=== PATIENT | female | born 1980 | race Caucasian/White ===

== ENCOUNTER 2018-10-23 03:05 | Emergency (ER) | payer SELFPAY ==
[~2018-10-23] VITALS: Ht 167.6 cm; Wt 104.3 kg
[2018-10-23 03:15] VITALS: BP 197/113
[2018-10-23] MEDS ORDERED: AMOX500T PO (03:28)
[2018-10-23] MEDS ORDERED: MELO7.5T29 PO (03:28)
--- NOTE | 2018-10-23 03:29 | PHYS DOC ---
Past Medical History Past Medical History: No Pertinent History Past Surgical History: No Surgical History Smoking: Cigarettes Alcohol Use: None Drug Use: None Adult General Chief Complaint Chief Complaint: TOOTH ACHE OR PAIN HPI HPI Patient is a 38 year old female presents with left upper tooth pain. Patient chews ice frequently and broke that tooth in the center 2018. Today while chewing on ice had increased pain in that area that [id number] ibuprofen and Aleve did not relieve. Nothing else seems to make the discomfort better or worse. Patient has not seen a dentist since breaking the tooth. No fever, and no foul taste in the mouth. Pain is moderate to severe. Patient is requesting no narcotics.[] Review of Systems Review of Systems Constitutional: Denies fever or chills [] Eyes: Denies change in visual acuity, redness, or eye pain [] HENT: Denies nasal congestion or sore throat [] Respiratory: Denies cough or shortness of breath [] Cardiovascular: No chest pain or palpitations[] GI: Denies abdominal pain, nausea, vomiting, bloody stools or diarrhea [] : Denies dysuria or hematuria [] Musculoskeletal: Denies back pain or joint pain [] Integument: Denies rash or skin lesions [] Neurologic: Denies headache, focal weakness or sensory changes [] Endocrine: Denies polyuria or polydipsia [] All other systems were reviewed and found to be within normal limits, except as documented in this note. Physical Exam Physical Exam Constitutional: Well developed, well nourished, no acute distress, non-toxic appearance. [] HENT: Normocephalic, atraumatic, bilateral external ears normal, oropharynx moist, no oral exudates, nose normal. Tooth #14 has tenderness to percussion, there is no abscess appreciated. This tooth is broken towards the posterior aspect. [] Eyes: PERRLA, EOMI, conjunctiva normal, no discharge. [] Neck: Normal range of motion, no tenderness, supple, no stridor. [] Cardiovascular:Heart rate regular rhythm, no murmur [] Lungs & Thorax: Bilateral breath sounds clear to auscultation [] Abdomen: Not examined. [] Skin: Warm, dry, no erythema, no rash. [] Back: No tenderness, no CVA tenderness. [] Extremities: No tenderness, no cyanosis, no clubbing, ROM intact, no edema. [] Neurologic: Alert and oriented X 3, normal motor function, normal sensory function, no focal deficits noted. [] Psychologic: Affect normal, judgement normal, mood normal. [] EKG EKG [] Radiology/Procedures Radiology/Procedures [] Course & Med Decision Making Course & Med Decision Making Pertinent Labs and Imaging studies reviewed. (See chart for details) Medical decision making: There does not appear to be Ramirez angina, no evidence of significant abscess, no meningitis. Will start patient on oral outpatient antibiotics and provide a list of dental clinics for follow-up.[] Dragon Disclaimer Dragon Disclaimer This electronic medical record was generated, in whole or in part, using a voice recognition dictation system. Departure Departure Impression: Primary Impression: Dental abscess Additional Impression: Broken tooth Disposition: HOME, SELF-CARE Condition: IMPROVED Patient Instructions: Dental Abscess, Dental Pain Additional Instructions: Follow-up with your regular doctor and dentist in 2 days. Take the medication as prescribed. Return to the ER if worsening discomfort or any other concerns. Scripts Amoxicillin (AMOXICILLIN) 500 Mg Tablet 1 TAB PO TID, #30 TAB Prov: HOLLIS AMOS DO 10/23/18 Meloxicam (MELOXICAM) 7.5 Mg Tablet 7.5 MG PO DAILY, #20 TAB Prov: HOLLIS AMOS DO 10/23/18 Problem Qualifiers Additional Impression: Broken tooth Encounter type: initial encounter Fracture type: closed Qualified Codes: S02.5XXA - Fracture of tooth (traumatic), initial encounter for closed fracture HOLLIS AMOS DO Oct 23, 2018 03:29
[2018-10-23] MEDS ORDERED: AMOXICILLIN 250 MG CAPSULE. PO ONE (03:30)
[2018-10-23] MEDS ORDERED: AMOXICILLIN 250 MG CAPSULE. ONE (03:36)
== END 2018-10-23 03:40 | disposition home or self-care (01) ==
LOC: ER 03:05
DX: S02.5XXA Fracture of tooth (traumatic), initial encounter for closed fracture (principal); K04.7 Periapical abscess without sinus; F17.210 Nicotine dependence, cigarettes, uncomplicated; X58.XXXA Exposure to other specified factors, initial encounter; Y93.89 Activity, other specified; Y92.89 Other specified places as the place of occurrence of the external cause; Y99.8 Other external cause status
CPT/HCPCS: 99283